=== PATIENT | female | born 1950 | race Caucasian/White ===

== ENCOUNTER 2019-01-24 18:07 | Emergency (ER) | payer MEDICAID, MEDICARE, SELFPAY ==
[~2019-01-24] VITALS: Ht 160 cm; Wt 64.9 kg
[2019-01-24 18:20] VITALS: BP 138/78
[2019-01-24] MEDS ORDERED: LIDOCAINE-MPF 1%, 5ML INFIL ONE (18:30)
[2019-01-24] MEDS ORDERED: DIPH,PERTUSS(ACELL),TET VAC/PF 0.5 ML IM-VACC ONE ×2 (18:30)
[2019-01-24] MEDS ORDERED: LIDOCAINE-MPF 1%, 5ML ONE (19:02)
[2019-01-24] MEDS ORDERED: BACITRACIN ZINC OINT 500U/GM, 0.9 GM ONE (20:01)
[2019-01-24] MEDS ORDERED: AMOXICILLIN/CLAV 875-125MG TABLET PO STA (20:02)
[2019-01-24] MEDS ORDERED: AMOXICILLIN/CLAV 875-125MG TABLET ONE (20:11)
[2019-01-24] MEDS ORDERED: HYDROcodone/APAP 5/325 TABLET PO ONE (20:21)
[2019-01-24] MEDS ORDERED: HYDROcodone/APAP 5/325 TABLET ONE (20:22)
--- NOTE | 2019-01-24 20:32 | NUR ---
TASK RN: DC EDUCATION PROVIDED, PT DEMONSTRATES UNDERSTANDING. PT AMBULATED STEADILY TO [place] IW RN AND FRIEND. FRIEND TO TRANSPORT PT HOME.
== END 2019-01-24 20:34 | disposition home or self-care (01) ==
LOC: ED 20:32
DX: S61.452A Open bite of left hand, initial encounter (principal); S61.251A Open bite of left index finger without damage to nail, initial encounter; S61.253A Open bite of left middle finger without damage to nail, initial encounter; F17.200 Nicotine dependence, unspecified, uncomplicated; W54.0XXA Bitten by dog, initial encounter; Y93.89 Activity, other specified; Y92.830 Public park as the place of occurrence of the external cause; Y99.8 Other external cause status
CPT/HCPCS: 12042; 90471; 90715

== ENCOUNTER 2020-05-03 14:29 | Inpatient (IN) | payer MEDICARE, OTHER ==
[~2020-05-03] VITALS: Ht 160 cm; Wt 67.1 kg
[2020-05-03] MEDS ORDERED: DILTIAZEM 60 MG TABLET PO ONE (15:00)
[2020-05-03] MEDS ORDERED: SODIUM CHLORIDE FLUSH 10ML SYR IVF ONE (15:00)
[2020-05-03] MEDS ORDERED: DILTIAZEM 5 MG/ML, 5ML IVPush ONE ×2 (15:00→16:30)
--- NOTE | 2020-05-03 15:08 | NUR ---
PT PRESENTS TO ED WITH C/O SOB, ABD "BLOATING", AND PALPITATIONS X 1 WEEK. PT DENIED COUGH IN TRIAGE BUT TOLD THIS RN THAT SHE HAS HAD OCCAISIONAL COUGH X 1 WEEK. MASK IS ON PT. PT ON ALL MONITORS, AFIB RATE 130'S ON PAYROLL BENEFITS CLERK WITH NO ECTOPY. PT HAS NO HX AFIB. PT A&O, RESPS EVEN AND UNLABORED. NADN. PT DENIES PAIN. DENIES SORE THROAT, DENIES FEVERS. PIV PLACED. PT SEEN AND EXAMINED BY EDMD LAW. US AT BEDSIDE. REPORT GIVEN TO ARNAUD WORKMAN WHO IS ASSUMING CARE.
[2020-05-03] MEDS ORDERED: DILTIAZEM 5 MG/ML, 5ML ONE ×2 (15:11→16:10)
--- NOTE | 2020-05-03 15:18 | NUR ---
LAW INFORMED PT REPORTS SHE HAS HAD A COUGH X 1 WEEK. PER , PT NOT SUSPICIOUS FOR COVID AT THIS TIME, DECLINES TO ORDER COVID SWAB.
[2020-05-03 15:20] LABS: BASOPHILS # (AUTO) 0.05 x10^3/uL (0-0.1); BASOPHILS % (AUTO) 1 % (0-1); EOSINOPHILS # (AUTO) 0.26 x10^3/uL (0-0.4); EOSINOPHILS % (AUTO) 3 % (1-7); LYMPHOCYTES # (AUTO) 2.98 x10^3/uL (1-3.4); LYMPHOCYTES % (AUTO) 30 % (22-44); MD NO; MEAN CORPUSCULAR HEMOGLOBIN 33.1 pg (27.0-34.8); MEAN CORPUSCULAR HGB CONC 33.8 g/dL (32.4-35.8); MEAN PLATELET VOLUME 9.5 fL (7.4-10.4); MONOCYTES % (AUTO) 5 % (2-9); NEUTROPHILS # (AUTO) 6.12 x10^3/uL (1.8-6.8); NEUTROPHILS % (AUTO) 62 % (42-75); PLATELET COUNT 179 x10^3/uL (130-400); RED BLOOD COUNT 4.94 x10^6/uL (3.82-5.3)
[2020-05-03 15:22] LABS: ALANINE AMINOTRANSFERASE 51 U/L (12-78); ALBUMIN 3.7 g/dL (3.4-5.0); ANION GAP 10 mmol/L (5-15); CHLORIDE 105 mmol/L (98-107); CREATININE 1.07 mg/dL (0.55-1.02)
[2020-05-03 15:27] LABS: ALKALINE PHOSPHATASE 111 U/L (45-117); BILIRUBIN,TOTAL 1.3 mg/dL (0.2-1.0); TROPONIN I 0.019 ng/mL (0.000-0.045)
--- NOTE | 2020-05-03 15:45 | NUR ---
REPORT TO ARNAUD CALDERON.
[2020-05-03] MEDS ORDERED: DILTIAZEM 60 MG TABLET ONE (16:14)
[2020-05-03] MEDS ORDERED: FUROSEMIDE 20 MG/2 ML ONE ×2 (16:14→19:06)
--- NOTE | 2020-05-03 16:22 | NUR ---
PT C/O INCREASED SOB AT REST. MEDICATED PER MAR. O2 89-90 ON 2L. INCREASED TO 4L.
[2020-05-03] MEDS ORDERED: FUROSEMIDE 20 MG/2 ML IV ONE (16:30)
[2020-05-03] MEDS ORDERED: ONDANSETRON 2MG/ML, 2ML IVPush PRN (17:30)
[2020-05-03] MEDS ORDERED: DOCUSATE 100 MG CAPSULE PO PRN (17:30)
[2020-05-03] MEDS ORDERED: ONDANSETRON ODT 4 MG PO PRN (17:30)
[2020-05-03] MEDS ORDERED: POLYETHYLENE GLYCOL 17 GM PACKET PO PRN (17:30)
[2020-05-03] MEDS: POTASSIUM CHLORIDE 20 MEQ TAB.ER.PRT PO SCH (17:30)
[2020-05-03] MEDS: METOPROLOL TARTRATE 25 MG TAB PO SCH (18:00)
[2020-05-03] MEDS ORDERED: POTASSIUM CHLORIDE 20 MEQ TAB.ER.PRT ONE (18:20)
[2020-05-03] MEDS ORDERED: METOPROLOL TARTRATE 25 MG TAB ONE (18:20)
[2020-05-03] MEDS ORDERED: FUROSEMIDE 40 MG/4 ML IV ONE (19:00)
[2020-05-03] MEDS ORDERED: APIXABAN 5 MG TABLET ONE (19:06)
[2020-05-03] MEDS: APIXABAN 5 MG TABLET PO SCH (19:37)
[2020-05-03 20:23] VITALS: BP 98/73
[2020-05-03] MEDS ORDERED: OMNIPAQUE 350 MG/ML, 75ML BOTTLE ONE (21:59)
[2020-05-03] MEDS: ACETAMINOPHEN 325 MG TABLET PO PRN (22:13)
[2020-05-04 01:20] VITALS: BP 101/76
[2020-05-04 05:13] LABS: BASOPHILS # (AUTO) 0.04 x10^3/uL (0-0.1); BASOPHILS % (AUTO) 1 % (0-1); EOSINOPHILS # (AUTO) 0.22 x10^3/uL (0-0.4); EOSINOPHILS % (AUTO) 2 % (1-7); LYMPHOCYTES # (AUTO) 3.11 x10^3/uL (1-3.4); LYMPHOCYTES % (AUTO) 34 % (22-44); MD NO; MEAN CORPUSCULAR HEMOGLOBIN 33.3 pg (27.0-34.8); MEAN CORPUSCULAR HGB CONC 33.5 g/dL (32.4-35.8); MEAN CORPUSCULAR VOLUME 99.2 fL (80-100); MEAN PLATELET VOLUME 9.6 fL (7.4-10.4); MONOCYTES # (AUTO) 0.53 x10^3/uL (0.2-0.8); MONOCYTES % (AUTO) 6 % (2-9); NEUTROPHILS # (AUTO) 5.33 x10^3/uL (1.8-6.8); NEUTROPHILS % (AUTO) 58 % (42-75); PLATELET COUNT 178 x10^3/uL (130-400); RED BLOOD COUNT 4.81 x10^6/uL (3.82-5.3); RED CELL DISTRIBUTION WIDTH 14.9 % (9.6-15.2)
[2020-05-04 05:27] LABS: ALBUMIN 3.4 g/dL (3.4-5.0); ANION GAP 14 mmol/L (5-15); CHLORIDE 105 mmol/L (98-107)
[2020-05-04 05:35] VITALS: BP 128/92
[2020-05-04] MEDS: METOPROLOL TARTRATE 25 MG TAB PO SCH ×2 (05:36→17:40)
[2020-05-04 05:41] LABS: ALANINE AMINOTRANSFERASE 43 U/L (12-78); ALKALINE PHOSPHATASE 102 U/L (45-117); BILIRUBIN,TOTAL 1.4 mg/dL (0.2-1.0); CHOL/HDL RATIO 2.8; CHOLESTEROL, TOTAL 96 mg/dL (140-239); CREATININE 1.05 mg/dL (0.55-1.02); HDL CHOL % 35 % (28-40); HDL CHOLESTEROL (DIRECT) 34 mg/dL (40-60); LDL CHOLESTEROL,CALCULATED 44 mg/dL (54-169); LDL/HDL RATIO 1.3 (0.5-3.0); TOTAL PROTEIN 6.6 g/dL (6.4-8.2); TRIGLYCERIDES 92 mg/dL (50-200); VLDL CHOLESTEROL 18 mg/dL (0-25)
[2020-05-04 06:38] VITALS: BP 113/78
[2020-05-04] MEDS: FUROSEMIDE 40 MG/4 ML IV SCH ×2 (08:09→17:39)
[2020-05-04] MEDS: POTASSIUM CHLORIDE 20 MEQ TAB.ER.PRT PO SCH ×2 (08:09→17:39)
[2020-05-04] MEDS: APIXABAN 5 MG TABLET PO SCH ×2 (08:09→20:26)
[2020-05-04] MEDS ORDERED: LIDOCAINE-MPF 1%, 5ML ONE ×2 (11:21→11:55)
[2020-05-04 12:25] VITALS: BP 107/76
[2020-05-04 17:37] VITALS: BP 111/84
[2020-05-04 19:27] VITALS: BP 101/79
[2020-05-04] MEDS ORDERED: MELATONIN 5 MG TABLET PO PRN (23:30)
[2020-05-05 01:21] VITALS: BP 113/72
[2020-05-05] MEDS: METOPROLOL TARTRATE 25 MG TAB PO SCH (05:28)
[2020-05-05 05:29] VITALS: BP 105/73
[2020-05-05] MEDS: ACETAMINOPHEN 325 MG TABLET PO PRN (05:37)
[2020-05-05 05:48] LABS: FREE T4 (FREE THYROXINE) 1.36 ng/dL (0.76-1.46)
[2020-05-05 06:31] VITALS: BP 106/83
[2020-05-05] MEDS: FUROSEMIDE 40 MG/4 ML IV SCH (07:30)
[2020-05-05] MEDS ORDERED: METO25TA91 PO (08:02)
[2020-05-05] MEDS ORDERED: APIX5TAB PO (08:02)
[2020-05-05] MEDS: POTASSIUM CHLORIDE 20 MEQ TAB.ER.PRT PO SCH (08:09)
[2020-05-05] MEDS: APIXABAN 5 MG TABLET PO SCH (08:09)
== END 2020-05-05 11:10 | disposition home or self-care (01) | DRG 291 ==
LOC: ED 15:54 → EDIP 16:06 → 5SO 17:15 → EDIP 17:17 → 5SO 19:57 → DCLOUNGE 05-05 10:59
PROVIDERS: ADMIT Hospitalist; ATTEND Family Medicine
PROC: 0GBG3ZX Excision of Left Thyroid Gland Lobe, Percutaneous Approach, Diagnostic (ICD-10-PCS; principal; 2020-05-04)
PROC: BG44ZZZ Ultrasonography of Thyroid Gland (ICD-10-PCS; 2020-05-04)
DX: I50.21 Acute systolic (congestive) heart failure (principal); J96.01 Acute respiratory failure with hypoxia; I48.91 Unspecified atrial fibrillation; F17.200 Nicotine dependence, unspecified, uncomplicated; K80.20 Calculus of gallbladder without cholecystitis without obstruction; Z79.899 Other long term (current) drug therapy; Z84.89 Family history of other specified conditions
CPT/HCPCS: 36415; 60100; 71045; 71275; 76700; 76942; 80053; 80061; 83036; 83690; 83880; 84145; 84439; 84443; 84481; 84484; 85025; 85379; 88305; 93005; 93306; G0378; J1940; Q9967

== ENCOUNTER 2020-05-22 16:25 | Inpatient (IN) | payer MEDICARE, OTHER ==
[~2020-05-22] VITALS: Ht 160 cm; Wt 66.1 kg
[~2020-05-22 16:25] MED LIST: APIX5TAB PO; METO25TA91 PO
[2020-05-22] MEDS ORDERED: SODIUM CHLORIDE 0.9% 1,000ML IVBOLUS ONE (17:00)
[2020-05-22] MEDS ORDERED: SODIUM CHLORIDE FLUSH 10ML SYR IVF ONE (17:00)
--- NOTE | 2020-05-22 17:10 | NUR ---
ERP WAS IN TO SEE PT.
--- NOTE | 2020-05-22 17:15 | NUR ---
SPO2 WAS 90-91% ON RA. PT STILL REPORTS FEELING SOB. O2 APPLIED AT 2L NC, SPO2 INCREASED TO 98%. Addendum: 05/22/20 at 1738 by HBENSON IV STARTED, LABS DRAWN, IV BOLUS INFUSING.
[2020-05-22 17:29] LABS: BASOPHILS % (AUTO) 1 % (0-1); EOSINOPHILS # (AUTO) 0.17 x10^3/uL (0-0.4); EOSINOPHILS % (AUTO) 2 % (1-7); LYMPHOCYTES # (AUTO) 3.15 x10^3/uL (1-3.4); LYMPHOCYTES % (AUTO) 35 % (22-44); MD NO; MEAN CORPUSCULAR HEMOGLOBIN 32.2 pg (27.0-34.8); MEAN CORPUSCULAR HGB CONC 33.1 g/dL (32.4-35.8); MEAN CORPUSCULAR VOLUME 97.5 fL (80-100); MEAN PLATELET VOLUME 9.5 fL (7.4-10.4); MONOCYTES # (AUTO) 0.48 x10^3/uL (0.2-0.8); MONOCYTES % (AUTO) 5 % (2-9); NEUTROPHILS # (AUTO) 5.22 x10^3/uL (1.8-6.8); NEUTROPHILS % (AUTO) 57 % (42-75); PLATELET COUNT 164 x10^3/uL (130-400); RED BLOOD COUNT 4.88 x10^6/uL (3.82-5.3); RED CELL DISTRIBUTION WIDTH 14.2 % (9.6-15.2)
[2020-05-22 17:38] LABS: ALANINE AMINOTRANSFERASE 42 U/L (12-78); ALBUMIN 3.3 g/dL (3.4-5.0); ANION GAP 9 mmol/L (5-15); CALCIUM 8.5 mg/dL (8.5-10.1); CHLORIDE 110 mmol/L (98-107)
[2020-05-22 17:42] LABS: ALKALINE PHOSPHATASE 86 U/L (45-117); BILIRUBIN,TOTAL 1.7 mg/dL (0.2-1.0); CREATININE 0.88 mg/dL (0.55-1.02); TOTAL PROTEIN 6.6 g/dL (6.4-8.2); TROPONIN I 0.021 ng/mL (0.000-0.045)
--- NOTE | 2020-05-22 18:23 | NUR ---
PT AMBULATED TO BR WITH STAND BY ASSIST.
--- NOTE | 2020-05-22 19:29 | NUR ---
PT MORE HYPOXIC AND SOB AFTER COMING BACK FROM CT. SPO2 WENT DOWN TO 87% ON 2L NC. O2 SWITCHED TO OXYMASK AT 8L, SPO2 INCREASED TO 94%. LUNG SOUNDS DECREASED WITH WHEEZING. ERP UPDATED ON PT STATUS. AWAITING CT RESULTS.
[2020-05-22] MEDS ORDERED: FUROSEMIDE 20 MG/2 ML ONE (19:44)
[2020-05-22] MEDS ORDERED: DILTIAZEM 5 MG/ML, 5ML ONE (19:55)
[2020-05-22] MEDS ORDERED: ONDANSETRON 2MG/ML, 2ML IVPush PRN (20:00)
[2020-05-22] MEDS ORDERED: DILTIAZEM 5 MG/ML, 5ML IVPush ONE (20:00)
[2020-05-22] MEDS ORDERED: ACETAMINOPHEN 325 MG TABLET PO PRN (20:00)
[2020-05-22] MEDS ORDERED: FUROSEMIDE 20 MG/2 ML IV ONE (20:00)
[2020-05-22] MEDS ORDERED: hydrALAzine 20 MG/ML, 1ML IVPush PRN (20:00)
[2020-05-22] MEDS ORDERED: ENOXAPARIN 40 MG/0.4 ML SQ SCH (20:00)
--- NOTE | 2020-05-22 20:00 | NUR ---
PT MEDICATED WITH LASIX PER ORDERS. SITTING UPRIGHT IN [facility]. 'WD POC WITH PT. PT'S DAUGHTER JESUSITA CALLED; UPDATED HER THAT PT IS BEING ADMITTED. Addendum: 05/22/20 at 2232 by HBENSON HOSPITALIST WAS IN TO SEE PT AND AWARE OF PT CHANGE IN CONDITION. Addendum: 05/22/20 at 2236 by HBENSON PT STATES IT'S EASIER TO BREATHE WHEN SITTING UPRIGHT. HR UP TO 120s-130s AFIB, HOSPITALIST AWARE. PT ANXIOUS.
--- NOTE | 2020-05-22 20:08 | NUR ---
REPORT RECIEVED FROM ARNAUD BAEZ.
--- NOTE | 2020-05-22 20:23 | NUR ---
PATIENT STATED THAT SYMPTOMS HAVE IMPROVED. PATIENT COLOR IS OF NORMAL ETHNICITY. PATIENT NO LONGER COOL CLAMMY OR DIAPHORETIC. PATIENT TOLERATING INTERVENTIONS WELL. VITAL SIGNS HAVE IMPROVED. PATIENT IS RECOVERING WELL.
--- NOTE | 2020-05-22 20:48 | NUR ---
PATIENT UP TO BEDSIDE COMMODE. TOLERATED WELL. ONE ASSIST STAND BY. PATIENT GIVEN BRIEF AND PAD, CHANGED INTO NEW GOWN, LINENS CHANGED. FALL PRECAUTIONS SOCKS PLACED ON PATIENT. PATIENT UPDATED ON PLAN OF CARE. WILL CONTINUE TO MONITOR.
--- NOTE | 2020-05-22 21:22 | NUR ---
COVID SWAB COLLECTED, PATIENT TOLERATED WELL.
--- NOTE | 2020-05-22 21:33 | NUR ---
PATIENT UP TO RESTROOM, TOLERATED WELL. PATIENT REQUESTED TO BE PLACED ON NASAL CANNULA AGAIN, WILL TRIAL PATIENT TO EVALUATE RESPONSE. CURRENTLY PATIENT ON 6LNC AT 95%
[2020-05-22] MEDS ORDERED: OMNIPAQUE 350 MG/ML, 100ML BOTTLE ONE (21:40)
--- NOTE | 2020-05-22 21:44 | NUR ---
SPOKE WITH DAUGHTER ONKEERTHI [phone]. VERBAL APPROVAL TO SHARE INFORMATION REGARDING MEDICAL CARE WITH PATIENT.
--- NOTE | 2020-05-22 22:43 | NUR ---
PATIENT UP TO BEDSIDE COMMODES, TOLERATED WELL. REPORT GIVEN TO ARNAUD MONTGOMERY. PATIENT UPDATED ON PLAN OF CARE. NO NOTED ACUTE DISTRESS. PATIENT GIVEN FOOD, TOLERATED CONSUMPTION WELL.
--- NOTE | 2020-05-22 23:45 | NUR ---
CALLED FLOOR, [facility] HAS NOT BEEN CHANGED OF YET. FLOOR STATED THAT THEY WILL NOTIFY ENVIRONMENTAL SERVICES.
[2020-05-23] MEDS ORDERED: APIXABAN 5 MG TABLET ONE ×2 (00:03→08:49)
[2020-05-23] MEDS ORDERED: ENOXAPARIN 40 MG/0.4 ML ONE (00:03)
[2020-05-23] MEDS: APIXABAN 5 MG TABLET PO SCH ×3 (00:30→20:44)
--- NOTE | 2020-05-23 00:44 | NUR ---
PATIENT UPDATED ON PLAN OF CARE. PATIENT PLACED ON HOSPTIAL BED TO IMPROVE PATIENT COMFORT AND OPTIMIZE SKIN INTEGRITY. PATIENT TOLERATED WELL. VITAL SIGNS REMAIN STABLE. PATIENT DENIED ANY FURTHER NEEDS AT THIS TIME. WILL CONTINUE TO MONITOR.
--- NOTE | 2020-05-23 01:30 | NUR ---
PATIENT RESTING IN BED, VITAL SIGNS STABLE. NO NOTED NEEDS AT THIS TIME. CALL LIGHT WITHIN REACH. WILL CONTINUE TO MONITOR.
--- NOTE | 2020-05-23 03:31 | NUR ---
PATIENT RESTING IN BED, NO NOTED ACUTE DISTRESS, EVEN-UNLABORED RESPIRATIONS. TOLERATING INTERVENTIONS WELL. CALL LIGHT WITHIN REACH. WILL CONTINUE TO MONITOR.
--- NOTE | 2020-05-23 04:44 | NUR ---
PATIENT RESTING IN BED, NO NOTED NEEDS, EVEN-UNLABORED RESPRIATIONS. CALL LIGHT WITHIN REACH. BED IN LOWEST LOCKED POSITION. WILL CONTINUE TO MONITOR.
--- NOTE | 2020-05-23 05:53 | NUR ---
BLOOD COLLECTED AND LABS SENT. PATIENT DENIES ANY FURTHER NEEDS AT THIS TIME. VITAL SIGNS STABLE. WILL CONTINUE TO MONITOR.
[2020-05-23 06:20] LABS: ANION GAP 8 mmol/L (5-15); BASOPHILS # (AUTO) 0.05 x10^3/uL (0-0.1); BASOPHILS % (AUTO) 1 % (0-1); CALCIUM 8.4 mg/dL (8.5-10.1); CHLORIDE 110 mmol/L (98-107); CREATININE 0.87 mg/dL (0.55-1.02); EOSINOPHILS # (AUTO) 0.17 x10^3/uL (0-0.4); EOSINOPHILS % (AUTO) 2 % (1-7); LYMPHOCYTES # (AUTO) 2.17 x10^3/uL (1-3.4); LYMPHOCYTES % (AUTO) 31 % (22-44); MD NO; MEAN CORPUSCULAR HEMOGLOBIN 32.9 pg (27.0-34.8); MEAN CORPUSCULAR HGB CONC 33.5 g/dL (32.4-35.8); MEAN PLATELET VOLUME 9.4 fL (7.4-10.4); MONOCYTES # (AUTO) 0.42 x10^3/uL (0.2-0.8); MONOCYTES % (AUTO) 6 % (2-9); NEUTROPHILS % (AUTO) 60 % (42-75); PLATELET COUNT 134 x10^3/uL (130-400); RED BLOOD COUNT 4.63 x10^6/uL (3.82-5.3); RED CELL DISTRIBUTION WIDTH 14.4 % (9.6-15.2)
[2020-05-23 06:23] LABS: TROPONIN I 0.027 ng/mL (0.000-0.045)
--- NOTE | 2020-05-23 06:34 | NUR ---
PATIENT UP TO RESTROOM, TOLERATED WELL. DENIES ANY FURTHER NEEDS AT THIS TIME. PATIENT UPDATED ON PLAN OF CARE. CALL LIGHT WITHIN REACH, BED IN LOWEST LOCKED POSITION. WILL CONTINUE TO MONITOR.
--- NOTE | 2020-05-23 06:55 | NUR ---
REPORT GIVEN TO ONCOMING RN
--- NOTE | 2020-05-23 07:00 | NUR ---
REPORT RECEIVED FROM PARADISE LARES. PT IS RESTING ON HOSPITAL BED, VSS, NADN. PT DENIES SOB. PT IS CURRENTLY ON 5L O2 NC, DENIES HOME O2. AFIB ON THE MONITOR, PER PARADISE LARES PT GOES IN AND OUT OF AFIB. CONNECTED TO ALL MONITORING. DENIES FURTHER NEEDS AT THIS TIME.
--- NOTE | 2020-05-23 08:30 | NUR ---
BREAKFAST TRAY DELIVERED.
[2020-05-23] MEDS ORDERED: FUROSEMIDE 20 MG TABLET ONE (08:49)
[2020-05-23] MEDS: FUROSEMIDE 20 MG TABLET PO SCH (09:02)
--- NOTE | 2020-05-23 09:03 | NUR ---
MED DAWIT FROM PHARMACY.
--- NOTE | 2020-05-23 09:13 | NUR ---
PT RESTING ON HOSPITAL BED EATING BREAKFAST, RESP EVEN AND UNLABORED, NADN. AWAITING ADMIT.
--- NOTE | 2020-05-23 09:30 | NUR ---
SPOKE W/ PTS DAUGHTER JESUSITA W/ PTS PERMISSION TO GIVE UPDATE. DAUGHTER REPORTS SHE WILL DROP OFF PTS PHONE IN ABOUT AN HOUR PER PT REQUEST.
[2020-05-23] MEDS: METOPROLOL SUCCINATE 25 MG TAB.ER.24H PO SCH (09:49)
--- NOTE | 2020-05-23 11:16 | NUR ---
PT RESTING ON HOSPITAL BED, VSTerrence, RAFATN. DENIES FURTHER NEEDS AT THIS TIME.
--- NOTE | 2020-05-23 12:18 | NUR ---
LUNCH TRAY DELIVERED. PT SITTING UP ON HOSPITAL BED EATING. VSS, NADN. PT DENIES FURTHER NEEDS AT THIS TIME.
--- NOTE | 2020-05-23 13:15 | NUR ---
MED DAWIT FROM PHARMACY.
--- NOTE | 2020-05-23 13:21 | NUR ---
PT AMBULATED TO THE COMMODE STEADILY W/ A STANDBY ASSIST.
[2020-05-23] MEDS: DILTIAZEM 30 MG TABLET PO SCH ×2 (13:39→20:44)
--- NOTE | 2020-05-23 13:41 | NUR ---
PT RETURNED TO HOSPITAL BED, VSS, NADN.
--- NOTE | 2020-05-23 16:40 | NUR ---
PT RESTING ON HOSPITAL BED. RESP EVEN AND UNLABORED, VSS, NADN. PT DENIES FURTHER NEEDS AT THIS TIME. DINNER TRAY ORDERED.
--- NOTE | 2020-05-23 17:12 | NUR ---
REPORT GIVEN TO ANSELMO LARES. PT IS READY FOR TRANSPORT AT THIS TIME.
[2020-05-23 17:42] VITALS: BP 101/68
[2020-05-23 20:24] VITALS: BP 107/67
[2020-05-24] VITALS (8 sets, daily range): BP systolic 92–117; BP diastolic 55–78
[2020-05-24] MEDS: DILTIAZEM 30 MG TABLET PO SCH ×4 (02:30→23:37)
[2020-05-24] MEDS ORDERED: DILTIAZEM 30 MG TABLET PO SCH ×2 (10:00→13:00)
[2020-05-24 10:32] LABS: ANION GAP 8 mmol/L (5-15); CALCIUM 8.6 mg/dL (8.5-10.1); CHLORIDE 110 mmol/L (98-107)
[2020-05-24 10:33] LABS: CREATININE 0.89 mg/dL (0.55-1.02)
[2020-05-24] MEDS: FUROSEMIDE 20 MG TABLET PO SCH (10:41)
[2020-05-24] MEDS: METOPROLOL SUCCINATE 25 MG TAB.ER.24H PO SCH (10:48)
[2020-05-24] MEDS: APIXABAN 5 MG TABLET PO SCH ×2 (10:48→20:42)
[2020-05-25 00:19] VITALS: BP 96/63
[2020-05-25 05:19] VITALS: BP 100/63
[2020-05-25] MEDS: DILTIAZEM 30 MG TABLET PO SCH ×2 (05:22→10:53)
[2020-05-25 06:56] VITALS: BP 101/65
[2020-05-25 08:24] VITALS: BP 101/68
[2020-05-25] MEDS: APIXABAN 5 MG TABLET PO SCH (08:25)
[2020-05-25] MEDS ORDERED: REGADENOSON 0.4 MG/5 ML SYRINGE ONE (08:55)
[2020-05-25 10:52] VITALS: BP 112/77
[2020-05-25] MEDS: FUROSEMIDE 20 MG TABLET PO SCH (10:53)
[2020-05-25] MEDS: METOPROLOL SUCCINATE 25 MG TAB.ER.24H PO SCH (10:53)
[2020-05-25] MEDS ORDERED: METO-93 PO (12:54)
[2020-05-25] MEDS ORDERED: FURO20TA3 PO (12:54)
== END 2020-05-25 14:05 | disposition home or self-care (01) | DRG 291 ==
LOC: ED 18:12 → EDIP 18:49 → 4NW 05-23 17:26
PROVIDERS: ADMIT Internal Medicine; ATTEND Internal Medicine
DX: I11.0 Hypertensive heart disease with heart failure (principal); J96.01 Acute respiratory failure with hypoxia; I48.20 Chronic atrial fibrillation, unspecified; I47.2 Ventricular tachycardia; I50.23 Acute on chronic systolic (congestive) heart failure; E04.9 Nontoxic goiter, unspecified; E83.41 Hypermagnesemia; J39.8 Other specified diseases of upper respiratory tract; F17.210 Nicotine dependence, cigarettes, uncomplicated; J44.9 Chronic obstructive pulmonary disease, unspecified; K80.20 Calculus of gallbladder without cholecystitis without obstruction; R59.0 Localized enlarged lymph nodes; Z79.01 Long term (current) use of anticoagulants; Z91.19 Patient's noncompliance with other medical treatment and regimen; Z20.828 Contact with and (suspected) exposure to other viral communicable diseases
CPT/HCPCS: 36415; 71045; 71275; 78452; 80048; 80053; 82164; 83036; 83735; 83880; 84145; 84443; 84484; 85025; 93005; 93017; 96374; 96375; G0378; J2785; Q9967; A9502; J1940; J7030; U0001-CS